=== PATIENT | male | born 1950 | race Caucasian/White ===

== ENCOUNTER 2023-06-16 00:21 | Day surgery (SDC) | payer MEDICARE, SELFPAY ==
[2023-06-08 14:20] VITALS: BMI 32.7
--- NOTE | 2023-06-08 14:40 | PC.NURSE ---
Report to the Outpatient Waiting Room, entrance under the green pavilion located off [facility], at time ___0830____ on date __06/16/23 . Planned Procedure Time: __1030 . Time changes happen often and if your time is changed the preop area will call you the afternoon before. - You and your visitor will be asked to self-screen and do not enter if you have any COVID symptoms. - A mask is optional within the hospital at this time. Patients may have clear liquids (water, carbonated beverages, clear teas, apple juice) until 3 hours prior to surgery (0730 AM) with a maximum of 20 ounces. - No food from midnight until time of surgery - Infants may have breast milk until 4 hours before surgery, formula 6 hours prior to surgery. - Children will be allowed to drink immediately following surgery. If applicable, please bring a bottle or sippy cup to assist with drinking. Juice, water, soda, and popsicles are readily available. For infants on formula, please bring formula the day of surgery. Pacifiers are allowed. Take the following medications with a SIP of water the morning of surgery: _CARVEDILOL__ DO NOT STOP ANY OF YOUR OTHER PRESCRIPTION MEDICATIONS PRIOR TO SURGERY ?EXCEPT THE FOLLOWING Medications to discontinue per DR. RINCON/DR. AC - _ASPIRIN, PLAVIX 6 DAYS PRIOR TO SURGERY, Date to take last dose 06/09/22_ Please no make-up, nail luxembourgish, hairspray, perfume, deodorant, or body powder the day of surgery. No jewelry (including any body piercings) or valuables the day of surgery, leave them at home. Please take a shower or bath the night before, or the morning of, surgery with an antibacterial soap. Wear comfortable, loose fitting clothing. Children are encouraged to wear pajamas. - Jewelry must be removed prior to entering the operating room. Rings and piercings that are not removed may be cut off. - The hospital will not accept responsibility for valuables. - Please leave all valuables, including medications, at home the day of surgery. If you are going home after surgery, a licensed operator and truck driver must drive you home. - NO public transportation without another adult if you receive anesthesia. - We recommend that an adult stay with you for 24 hours following discharge. - We also recommend that you do not drive, make important decision, drink alcoholic beverages, or take any drugs that were not prescribed by your health care provider for at least 24 hours after your discharge time. For Pediatric surgeries, we recommend two adults accompany the child home. Follow any additional instructions given to you from your surgeon. If you or anyone in your household have experienced Covid symptoms in the past week, please notify your surgeon or the nurse liaison at the phone number below for possible testing. Telephone instructions given to ___PT and asked if any additional questions and then verbalized understanding. Patient advised to call surgeon office or pre surgery nurse liaison [phone] if any additional questions.
--- NOTE | 2023-06-15 14:13 | WPDANESEPPF ---
Anes - Initial Pre Proc Eval Procedure: Operation Date: 06/16/23 10:30 Proposed Procedures p Left Knee Arthroscopy - Thom Friend MD Date/Time: 06/15/23 14:13 Surgeon: Thom Friend MD Pre Op Diagnosis: Left Knee medial meniscal tear Patient Data Age: 72 Gender: M Height: 1.73 m Weight: 97.72 kg Allergies Allergy/AdvReac Type Severity Reaction Status Date / Time No Known Allergies Allergy Unverified 06/09/23 09:56 Home Medications Medication Instructions Recorded Confirmed Type carvedilol 3.125 mg tablet 3.125 mg PO Q12H 02/06/23 06/16/23 History clopidogrel 75 mg tablet (Plavix) 75 mg PO DAILY 02/06/23 06/16/23 History aspirin 81 mg tablet,delayed 81 mg PO DAILY 06/05/23 06/16/23 History release lisinopril 5 mg tablet See Rx Instructions .Route 06/05/23 06/16/23 Rx .COMPLEX #90 tabs rosuvastatin 20 mg tablet 20 mg PO DAILY 06/05/23 06/16/23 History cholecalciferol (vitamin D3) 50 50 mcg PO DAILY 06/08/23 06/16/23 History mcg (2,000 unit) capsule multivitamin 1 tablet DAILY 06/08/23 06/16/23 History niacin 500 mg tablet 500 mg PO DAILY 06/08/23 06/16/23 History omega 8-lup-wsh-fish oil 1,200 mg 600 cap PO DAILY 06/08/23 06/16/23 History (144 mg-216 mg) capsule (Fish Oil) hydrocodone 5 mg-acetaminophen 325 1 tablet PO Q12H PRN pain #20 tabs 06/16/23 Rx mg tablet Patient hx anesthesia problems: none Family hx anesthesia problems: none Results Review: All pre-operative results and documents have been reviewed as part of the pre-operative evaluation. FOR[facility]LY [facility] Past Medical History Medical History Arrhythmia CAD (coronary artery disease) Dyslipidemia History of left heart catheterization 10/03/22 History of skin cancer 02/08/[address] Monsalve removed 03/29/[address] Monsalve removed HTN (hypertension) Hyperglycemia Tear of left meniscus as current injury Surgical History Surgical History History of cardiac radiofrequency ablation 03/23/22 due to PVCs History of coronary artery stent placement 10/03/22 Family History Family History Unknown Hypertension Hyperlipidemia Social History Social History Smoking status: Never smoker Second hand tobacco smoke exposure: No Alcohol intake: current Drinks per week: 2 Substance use: never Substance use type: does not use Lack of Transportation: No Lack of Food: Never True Current Housing: I Have Housing Concerned About Future Housing: No Difficulty Paying Gas/Electric Bills: No Difficulty Paying for Meds: No Currently Unemployed: No Education: High School Diploma/GED Difficulty w/ Childcare or Family Care: No Living arrangements: with family Occupation/Education: retired Additional occupation/education comments: teacher Gender identity (if verbalized by the patient): Male Sexual Orientation (if Verbalized by the Patient): Straight or Heterosexual Spiritual care concerns: No Anes - Eval Final PreProcedure Day of Procedure 06/15/23 14:13 Patient weight: obese Heart: regular rate and rhythm Lungs: clear to auscultation Airway: Mallampati scale class II Neurological: alert and oriented Last oral intake: >/= 8 hours ASA classification: III Emergent: no Anesthetic plan: proceed Anesthesia type and monitoring: general LMA and standard monitoring Results Review: All pre-operative results and documents have been reviewed as part of the pre-operative evaluation. Informed Consent: The patient's anesthetic plan and its attendant risks and benefits were discussed with the patient/family/POA. Questions were solicited and answers provided to the satisfaction of the patient/family/POA.
[2023-06-16] VITALS (11 sets, daily range): BP systolic 104–142; BP diastolic 46–88; PULSE 48–58; RESP 13–16; TEMP 36.2–36.6; O2SAT 97–100
--- NOTE | 2023-06-16 07:07 | WPDHPUPDATE1 ---
History and Physical Update Update Date/Time: 06/16/23 07:07 History and Physical has been reviewed, including an updated exam of the patient. There are NO changes in the patient's condition. Risks, benefits, and alternatives have been discussed and questions answered. Patient agrees to proceed with procedure.
[2023-06-16] MEDS: ACETAMINOPHEN 500 MG TABLET 1000 MG PO (09:13)
[2023-06-16] MEDS: CELECOXIB 200 MG CAPSULE PO (09:13)
[2023-06-16] MEDS: LACTATED RINGERS 1,000 ML 30 ML IV CONT ×2 (09:25→11:00)
[2023-06-16] MEDS: ceFAZolin 2 GM/D5W 50 ML 2 GM/50 ML BAG IVPB (10:12)
[2023-06-16] MEDS: BUPivacaine HCL 0.5% 10 ML AMP 30 ML INFILTRATE (10:39)
--- NOTE | 2023-06-16 10:59 | W.PM.PROC2 ---
Procedure Note - Detailed Date of Procedure 06/16/23 Pre-op Diagnosis Left Knee medial meniscal tear Post-op Diagnosis Same Procedure Performed LEFT KNEE SCOPE Surgeon Thom Friend MD Anesthesia General Description of Procedure PATIENT WAS TAKEN TO THE OR. LEFT LEG WAS PREPPED AND DRAPED STERILE. TROCARS WERE PLACED IN THE USUAL FASHION. CAMERA WAS INTRODUCED. THERE WAS CHONDROMALACIA TO THE PATELLA FEMORAL JOINT. THERE WAS A LOT OF SYNOVITIS IN ALL COMPARTMENTS. THE MEDIAL COMPARTMENT SHOWED CHONDROMALACIA TO THE MEDIAL FEMORAL CONDYLE. A SHAVER WAS USED TO PREFORM A CHONDROPLASTY. THERE WAS A COMPLEX MEDIAL MENISCUS TEAR WITH A LARGE FLAP. THE TEAR WAS RESECTED WITH A BITER AND A SHAVER DOWN TO A SMOOTH BASE. THERE WAS A FULL THICKNESS DEFECT WITH EXPOSED BONE ON THE MEDIAL PLATEAU WHICH WAS DEBRIDED WITH A SHAVER. THE ACL WAS INTACT. THE LATERAL MENISCUS WAS NOT TORN. THE LATERAL COMPARTMENT HAD GRADE 2 CHONDROMALACIA AT THE LATERAL FEMORAL CONDYLE. CHONDROPLASTY WAS PREFORMED. A SYNOVECTOMY WAS PREFORMED WELL. THE PATELLO FEMORAL JOINT UNDERWENT CHONDROPLASTY. THERE WAS GRADE 3 AND 4 CHONDROMALACIA IN PART OF THE TROCHLEA AND PATELLA. SYNOVECTOMY WAS PREFORMED IN THE SUPERIOR MEDIAL COMPARTMENT. THE WOUNDS WERE APPROXIMATED WITH 4.0 NYLON. STERILE DRESSING WAS APPLIED. PATIENT WAS EXTUBATED. Estimated Blood Loss -5.0 Complications No immediate complications Condition Stable Disposition PACU
== END 2023-06-16 13:50 | disposition home or self-care (01) ==
PROVIDERS: PCP Physician Assistant Medical; Visit Provider Orthopaedic Surgery
PROC: (CPT 29870; principal; 2023-06-16 10:30)
DX: S83.232A Complex tear of medial meniscus, current injury, left knee, initial encounter (principal); M65.862 Other synovitis and tenosynovitis, left lower leg; M22.42 Chondromalacia patellae, left knee; W18.40XA Slipping, tripping and stumbling without falling, unspecified, initial encounter; I25.10 Atherosclerotic heart disease of native coronary artery without angina pectoris; E78.5 Hyperlipidemia, unspecified; I10 Essential (primary) hypertension; Z95.5 Presence of coronary angioplasty implant and graft
CPT/HCPCS: 29876; 29881; A9270; J0690; J1100; J2250; J2405; J2704; J3010; J7120